=== PATIENT | female | born 1995 | race Caucasian/White ===

== ENCOUNTER 2021-02-24 15:29 | Emergency (ER) | payer OTHER ==
[2021-02-24] MEDS ORDERED: Sodium Chloride 0.9% 1000 ML 1,000 ML IV STA (15:50)
[2021-02-24] MEDS ORDERED: TORAdol 30 mg Injection IV ONE (15:50)
[2021-02-24] MEDS ORDERED: Reglan 10 MG/2 ML IV ONE (15:51)
[2021-02-24] MEDS ORDERED: BENADRYL 50 MG/ML IV ONE (15:51)
[2021-02-24] MEDS ORDERED: Reglan 10 MG/2 ML ONE (16:00)
[2021-02-24] MEDS ORDERED: BENADRYL 50 MG/ML ONE (16:00)
[2021-02-24] MEDS ORDERED: TORAdol 30 mg Injection ONE (16:00)
[2021-02-24] MEDS ORDERED: Sodium Chloride 0.9% 1000 ML 1,000 ML ONE (16:00)
[2021-02-24 16:01] LABS: Absolute Neutrophil Ct (ANC) 8.29 (1.4-6.9); Basophil (Absolute #) 0.02 (0-0.4); Eosinophil % 0.4 % (0.00-5.0); Eosinophil (Absolute #) 0.04 (0-0.5); Hematocrit 42.5 % (35-47); Hemoglobin 14.1 gm/dl (12.0-16.0); Lymphocyte (Absolute #) 0.42 (1.0-4.6); Lymphocytes % 4.2 % (24.0-44.0); Mean Cell Volume 87.8 fl (78-100); Mean Corpuscular Hemoglobin 29.1 pg (26-32); Mean Corpuscular Hgb Concent. 33.2 g/dl (32-36); Mean Platelet Volume 10.2 fl (7.5-11.0); Monocyte (Absolute #) 1.13 (0.0-1.3); Monocytes % 11.4 % (0.0-12.0); Neutrophil % 83.8 % (36.0-66.0); Platelet Count 264 K/mm3 (150-450); Red Blood Count 4.84 M/mm3 (4.1-5.4); Red Cell Distribution Width 12.5 % (11.5-14.0); White Blood Count 9.9 K/mm3 (4.0-10.5)
[2021-02-24 16:12] LABS: ALKALINE PHOSPHATASE 104 U/L (38-126); ANION GAP 15.7 MEQ/L (5-15); BLOOD UREA NITROGEN 11 mg/dL (7-17); CHLORIDE 99 mmol/L (98-107); Carbon Dioxide 26 mmol/L (22-30); Creatinine 1 0.82 mg/dL (0.52-1.04); EST GLOMERULAR FILTRATION RATE > 60.0 ML/MIN; Glucose 97 mg/dL (74-106); LIPASE 39 U/L (23-300); Potassium 3.6 mmol/L (3.5-5.1); SGOT/AST 31 U/L (14-36); SGPT/ALT 26 U/L (0-35); SODIUM 138 mmol/L (137-145); Total Protein 7.9 g/dL (6.3-8.2)
[2021-02-24 16:21] LABS: Slide Review 1 YES
[2021-02-24] MEDS ORDERED: TYLENOL 325 MG PO STA (16:24)
[2021-02-24] MEDS ORDERED: TYLENOL 325 MG ONE (16:33)
--- NOTE | 2021-02-24 16:42 | ERPHSYRPT ---
- History of Present Illness Time Seen by Provider: 02/24/21 15:31 Source: patient Exam Limitations: no limitations Patient Subjective Stated Complaint: Pt c/o of vomiting, cough, fever, headache, body aches for 3 days Triage Nursing Assessment: Pt was brought to the ER by her boyfriend, hypertensive, rates pain 8/10, lethargic, thinks that she has vomited approx 40 times today, headache, cough with yellow/green sputum, body aches, last intake 2 days ago, attempting to drink but unable to keep down Physician History: 26 years old female unvaccinated for COVID-19 presented in the ER with 1 week history of nasal/sinus congestion, sore throat, minimal nonproductive cough, body aches, headache fatigue tiredness with nausea and vomiting. Patient reports multiple episodes of nonprojectile, nonbilious vomiting without hematemesis. She feels weak fatigued tired and dehydrated. She was seen earlier at urgent care, Covid testing is done and patient is sent in here for hydration and treatment. Timing/Duration: week(s) (1), intermittent, gradual onset, worse Cough Quality/Degree: mild, dry cough Possible Cause: illness exposure Modifying Factors: Worsens With: coughing Associated Symptoms: fever, chills, cough, muscle aches, nasal congestion, nasal drainage, sore throat, No shortness of breath Allergies/Adverse Reactions: azithromycin [From Zithromax Z-Ric] Allergy (Mild, Verified 02/24/21 15:47) clindamycin Allergy (Mild, Verified 02/24/21 15:47) amoxicillin [Amoxicillin] Allergy (Verified 02/24/21 15:47) RASH cefaclor [From Ceclor] Allergy (Verified 02/24/21 15:47) HIVES cephalexin Allergy (Verified 02/24/21 15:51) doxycycline Allergy (Verified 02/24/21 15:51) Penicillins Allergy (Verified 02/24/21 15:51) Home Medications: Celecoxib 50 mg PO DAILY 02/24/21 [History] Hydroxyzine HCl 25 mg [Atarax 25 mg] 25 mg PO TID 02/24/21 [History] Hx Influenza Vaccination/Date Given: Yes (2010) Hx Pneumococcal Vaccination/Date Given: No Travel Risk - International Travel Have you traveled outside of the country in past 3 weeks: No - Coronavirus Screening Are you exhibiting any of the following symptoms?: Yes Symptoms: Cough: New Onset, Vomiting/Diarrhea, Headaches/Body Aches/Fatigue - Vaccine Status Have you recieved a Covid-19 vaccination: No - Review of Systems Constitutional: Fever, Chills, Fatigue, Weakness Eyes: No Symptoms Ears, Nose, & Throat: Nose Congestion, Throat Pain Respiratory: Cough Cardiac: No Symptoms Abdominal/Gastrointestinal: Nausea, Vomiting Genitourinary Symptoms: No Symptoms Musculoskeletal: Myalgias Skin: No Symptoms Neurological: Headache Endocrine: No Symptoms Hematologic/Lymphatic: No Symptoms Immunological/Allergic: No Symptoms - Past Medical History Pertinent Past Medical History: Yes Neurological History: Migraines, Other ENT History: No Pertinent History Cardiac History: No Pertinent History Respiratory History: No Pertinent History Endocrine Medical History: No Pertinent History Musculoskeletal History: No Pertinent History GI Medical History: No Pertinent History History: No Pertinent History Psycho-Social History: No Pertinent History Female Reproductive Disorders: No Pertinent History 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 - Past Surgical History Past Surgical History: Yes Neuro Surgical History: No Pertinent History Cardiac: No Pertinent History Respiratory: No Pertinent History Gastrointestinal: No Pertinent History Genitourinary: No Pertinent History Musculoskeletal: No Pertinent History Female Surgical History: No Pertinent History Other Surgical History: EYE SURG - Social History Smoking Status: Never smoker Exposure to second hand smoke: Yes Drug Use: none Patient Lives Alone: No - Female History Hx Last Menstrual Period: 02/06/2021 Hx Now: No - Nursing Vital Signs Nursing Vital Signs: Initial Vital Signs Temperature 100.1 F 02/24/21 15:34 Pulse Rate 95 H 02/24/21 15:34 Respiratory Rate 19 02/24/21 15:34 Blood Pressure 148/72 02/24/21 15:34 O2 Sat by Pulse Oximetry 100 02/24/21 15:34 Pain Scale Pain Intensity 2 - Physical Exam General Appearance: no apparent distress, alert Eye Exam: PERRL/EOMI, eyes nml inspection Ears, Nose, Throat Exam: moist mucous membranes, pharyngeal erythema Neck Exam: normal inspection, non-tender, supple, full range of motion Respiratory Exam: normal breath sounds, lungs clear Cardiovascular Exam: regular rate/rhythm, normal heart sounds Gastrointestinal/Abdomen Exam: soft, normal bowel sounds, No tenderness Back Exam: normal inspection, normal range of motion Extremity Exam: normal inspection, normal range of motion Neurologic Exam: alert, oriented x 3, cooperative Skin Exam: normal color SpO2 Interpretation: normal SpO2: 97 O2 Delivery: Room Air Ordered Tests: Active Orders 24 hr Category Date Time Status IV Insertion STAT Care 02/24/21 15:50 Completed CHEST 1 VIEW (PORTABLE) Stat Exams 02/24/21 15:50 Completed CBC W DIFF Stat Lab 02/24/21 15:40 Completed CMP Stat Lab 02/24/21 15:40 Completed LIPASE Stat Lab 02/24/21 15:40 Completed Medication Summary Discontinued Medications Generic Name Dose Route Start Last Admin Trade Name Freq PRN Reason Stop Dose Admin Acetaminophen 975 mg 02/24/21 16:24 02/24/21 16:33 Acetaminophen 325 Mg Tablet PO 02/24/21 16:25 975 mg STAT STA Administration Acetaminophen Confirm 02/24/21 16:33 Acetaminophen 325 Mg Tablet Administered 02/24/21 16:34 Dose 975 mg .ROUTE .STK-MED ONE Diphenhydramine HCl 25 mg 02/24/21 15:51 02/24/21 16:04 Diphenhydramine Hcl 50 Mg/Ml Vial IV 02/24/21 15:52 25 mg STAT ONE Administration Diphenhydramine HCl Confirm 02/24/21 16:00 Diphenhydramine Hcl 50 Mg/Ml Vial Administered 02/24/21 16:01 Dose 50 mg .ROUTE .STK-MED ONE Sodium Chloride 1,000 mls @ 999 mls/hr 02/24/21 15:50 02/24/21 17:05 Sodium Chloride 0.9% 1000 Ml IV 02/24/21 16:50 Infused .Q1H1M STA Infusion Sodium Chloride Confirm 02/24/21 16:00 Sodium Chloride 0.9% 1000 Ml Administered 02/24/21 16:01 Dose 1,000 mls @ ud .ROUTE .STK-MED ONE Ketorolac Tromethamine 30 mg 02/24/21 15:50 02/24/21 16:04 Ketorolac Tromethamine 30 Mg/Ml Inj IV 02/24/21 15:51 30 mg STAT ONE Administration Ketorolac Tromethamine Confirm 02/24/21 16:00 Ketorolac Tromethamine 30 Mg/Ml Inj Administered 02/24/21 16:01 Dose 30 mg .ROUTE .STK-MED ONE Metoclopramide HCl 10 mg 02/24/21 15:51 02/24/21 16:04 Metoclopramide Hcl 10 Mg/2 Ml Vial IV 02/24/21 15:52 10 mg STAT ONE Administration Metoclopramide HCl Confirm 02/24/21 16:00 Metoclopramide Hcl 10 Mg/2 Ml Vial Administered 02/24/21 16:01 Dose 10 mg .ROUTE .STK-MED ONE Lab/Rad Data: Laboratory Result Diagrams 02/24/21 15:40 02/24/21 15:40 Laboratory Results 02/24/21 02/24/21 Range/Units 15:40 15:40 WBC 9.9 (4.0-10.5) K/mm3 RBC 4.84 (4.1-5.4) M/mm3 Hgb 14.1 (12.0-16.0) gm/dl Hct 42.5 (35-47) % MCV 87.8 (78-100) fl MCH 29.1 (26-32) pg MCHC 33.2 (32-36) g/dl RDW 12.5 (11.5-14.0) % Plt Count 264 (150-450) K/mm3 MPV 10.2 (7.5-11.0) fl Gran % 83.8 H (36.0-66.0) % Eos # (Auto) 0.04 (0-0.5) Absolute Lymphs (auto) 0.42 L (1.0-4.6) Absolute Monos (auto) 1.13 (0.0-1.3) Lymphocytes % 4.2 L (24.0-44.0) % Monocytes % 11.4 (0.0-12.0) % Eosinophils % 0.4 (0.00-5.0) % Basophils % 0.2 (0.0-0.4) % Absolute Granulocytes 8.29 H (1.4-6.9) Basophils # 0.02 (0-0.4) Sodium 138 (137-145) mmol/L Potassium 3.6 (3.5-5.1) mmol/L Chloride 99 (98-107) mmol/L Carbon Dioxide 26 (22-30) mmol/L Anion Gap 15.7 H (5-15) MEQ/L BUN 11 (7-17) mg/dL Creatinine 0.82 (0.52-1.04) mg/dL Estimated GFR > 60.0 ML/MIN Glucose 97 (74-106) mg/dL Calcium 10.0 (8.4-10.2) mg/dL Total Bilirubin 0.90 (0.2-1.3) mg/dL AST 31 (14-36) U/L ALT 26 (0-35) U/L Alkaline Phosphatase 104 (38-126) U/L Serum Total Protein 7.9 (6.3-8.2) g/dL Albumin 5.0 (3.5-5.0) g/dL Lipase 39 (23-300) U/L Slides for Path Review YES - Progress Progress: improved Air Movement: good Progress Note: 02/24/21 17:37 She is given fluids along with Zofran and symptomatic treatment, on reevaluation feeling much better. No vomiting while in the ER. Baseline work-up grossly unremarkable. No acute findings on the chest x-ray reviewed by me, official report is pending. I believe her symptoms are viral at etiology, recommended supportive care, will give Zofran to use as needed and increase hydration. Discussed signs symptoms of worsening needing return to ER which she seems understanding. Blood Culture(s) Obtained: No Antibiotics given: No Counseled pt/family regarding: lab results, diagnosis, need for follow-up, rad results - Departure Departure Disposition: Home Clinical Impression: Viral syndrome Condition: Stable Referrals: JEROD COSTELLO [Primary Care Provider] - Follow up/PCP as directed (in 2 days for reevaluation) Instructions: Nausea and Vomiting, Adult (DC), Viral Syndrome (DC) Additional Instructions: Take Tylenol/Zofran as needed. Follow-up with your primary care for reevaluation. Drink plenty of fluids to keep yourself well-hydrated. Return to ER for persistent high-grade fever, difficulty breathing, intractable vomiting etc. Prescriptions: Ondansetron ODT 4 MG [Zofran Odt 4 mg] 1 ea PO QIDPRN PRN #7 tablet PRN Reason: n/v
[2021-02-24 17:11] VITALS: BP 109/62
[2021-02-24 17:39] VITALS: PULSE 80
[2021-02-24 17:42] VITALS: O2SAT 97
--- NOTE | 2021-02-24 18:22 | XRAY ---
Indication: Fever, cough, vomiting, and sore throat. Comparison: December 30, 2011. Portable chest demonstrates normal heart, lungs, and bony thorax.
== END 2021-02-24 17:47 | disposition home or self-care (01) ==
LOC: ED 15:29
DX: B34.9 Viral infection, unspecified (principal); R09.81 Nasal congestion; J02.9 Acute pharyngitis, unspecified; R05.9 Cough, unspecified; M79.10 Myalgia, unspecified site; R51.9 Headache, unspecified; M53.83 Other specified dorsopathies, cervicothoracic region; R11.2 Nausea with vomiting, unspecified; R50.9 Fever, unspecified
CPT/HCPCS: 36000; 36415; 71045; 80053; 83690; 85025; 96374; 96375; 99284; J1200; J1885; A9270-GY